=== PATIENT | male | born 1975 | race Two or more races ===

== ENCOUNTER 2017-03-07 13:39 | Emergency (ER) | payer SELFPAY ==
--- NOTE | ~2017-03-07 | ER ---
PATIENT'S NAME: HAILE GENTILE [facility] AGE: 41 Y [address] ROOM: [place], [place] [address] LOCATION: [facility] ADMIT DATE: 03/07/2017 ER/Outpatient Report DISCHARGE DATE: 03/07/2017 FAMILY PHYSICIAN: ATTENDING PHYSICIAN: Rani Bee CORRECTED WORK TYPE 03/09/17 AO Time of Arrival: 1350 hours. Time of Evaluation: 1400 hours. CHIEF COMPLAINT: Mite. HISTORY OF PRESENT ILLNESS: The patient states he has mites in his hands, feels tingling in his wrist. States that he noticed the bumps approximately 2 weeks ago. States his hands itch between the fingers, also has itching in the groin area and itching of his feet. States this all began approximately 2 weeks ago. When asked where he lives, the patient states that he either stays at the [facility] or stays on the streets. Does sleep in a sleeping bag. Has not had any changes like in soaps or his environment other than those as stated. He has not had a fever. Has not had a cough, congestion, or runny nose. Denies having any chest pain or abdominal pain. ALLERGIES: NO KNOWN ALLERGIES. MEDICATIONS: No current medications. PAST MEDICAL HISTORY: Negative. PAST SURGERIES: Negative. SOCIAL HISTORY: He states he lives on the streets. Smokes 1/2 pack per day. Denies use of drugs. No alcohol. 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 REVIEW OF SYSTEMS: All negative other than those mentioned in the HPI. PHYSICAL EXAMINATION: VITAL SIGNS: He weighed 91 kg. Blood pressure is 122/75, pulse of 113, respirations 20, temperature of 99.1, and O2 saturation is 96% on room air. PATIENT'S NAME: HAILE GENTILE [facility] AGE: 41 Y [address] ROOM: [place], [place] [address] LOCATION: [facility] ADMIT DATE: 03/07/2017 ER/Outpatient Report DISCHARGE DATE: 03/07/2017 FAMILY PHYSICIAN: ATTENDING PHYSICIAN: Rani Bee GENERAL: He is awake and alert and oriented x4. SKIN: [place], warm, and dry. RESPIRATIONS: Even and nonlabored. Lung sounds are clear throughout. HEART: Regular rate and rhythm. SKIN: The patient has irritation between his fingers, they are very itchy. Has some open sores of his forearms from itching. IMPRESSION: Scabies. PLAN: The patient was given a prescription for permethrin cream. It was explained to him how to put it on and then wash it off in 8 to 12 hours, repeat 1 week. If he continues to have problems, he should follow up with a primary provider. He verbalized understanding. YESY GLASS APRN FOR [facility]/chemo /[id number] CORRECTED WORK TYPE 03/09/17 AO d: 03/08/17 0132 t: 03/09/17 1533, OUTPATIENT REPORT
== END 2017-03-07 14:15 | disposition disaster alternative care site (69) ==
LOC: GMED 13:39
DX: B86 Scabies (principal); F17.210 Nicotine dependence, cigarettes, uncomplicated